=== PATIENT | female | born 1995 | race African-American/Black ===

== ENCOUNTER 2021-08-30 17:15 | Emergency (ER) | payer OTHER ==
[~2021-08-30] VITALS: Ht 157.5 cm; Wt 61.2 kg
[2021-08-30 17:15] VITALS: TEMP 98
[2021-08-30 18:30] VITALS: BP 138/84
== END 2021-08-30 18:45 | disposition home or self-care (01) ==
LOC: ED 17:15
DX: S39.012A Strain of muscle, fascia and tendon of lower back, initial encounter (principal); S80.01XA Contusion of right knee, initial encounter; S05.8X9A Other injuries of unspecified eye and orbit, initial encounter; V43.52XA Car driver injured in collision with other type car in traffic accident, initial encounter; Y92.89 Other specified places as the place of occurrence of the external cause
CPT/HCPCS: 96374; 96375; 99284; J2270; J2405